=== PATIENT | male | born 1975 | race Caucasian/White ===

== ENCOUNTER 2024-10-04 14:58 | Outpatient (AMB) | payer OTHER, SELFPAY ==
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
[2024-10-04 15:43] VITALS: BP 110/70; PULSE 89; RESP 14; TEMP 36.9; O2SAT 97; BMI 25.0
--- OUTSIDE RECORDS SUMMARY | 2024-10-04 15:59 | XMS_ITS | Continuity of Care Document ---
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 [address], [place], [id number], [place]. tel:[phone] [facility] , [address], [place], [id number], tel:[phone] [facility] Encounter for screening for infections with a predominantly sexual mode of transmission Jorge Chin. [address], [place], [id number], [place]. tel:[phone] Family History Family Member Type Diagnosis Age At Onset No Information Payers Payer name Insurance type Covered democrat ID Authoriza tion(s) No Information Social History Type Description Quantity Date Captured Comments Sex Male Smoking Status No Information Gender Identity Male Chief Complaint And Reason For Visit No Information Reason For Referral Reason For Referral No Information Plan Of Treatment Date Type Action Status Goal Flu (split) (3 y rs or older). Due on due Goal Flu (split) (3 y rs or older). Due on due Future Order: Lab Order GC ORAL - NAAT (GCORALNAAT), Ordered on: Ordered Future Order: Lab Order CHLY Ora l - NAAT (CHLYORALNAAT), Ordered on: Ordered Future Order: Lab Order RPR W/re flex FTA (RPRREFLEX), Appointment on: Ordered Future Order: Lab Order Gonorrhe a NAAT (Amp) (GONRHEA), Appointment on: Ordered Future Order: Lab Order Chlamydi a NAAT (CHLAMP), Appointment on: Ordered History Of Present Illness Encounter Date Complaint History Of Prese nt Illness No Information Functional Status Date Functional Assessmen t No Information Instructions Date Instruction Additional Infor mation No Information Assessments Type Assessment Date No Information Patient Care Teams Name Effective Dates (start - stop) Status Members No Information
--- OUTSIDE RECORDS SUMMARY | 2024-10-04 16:00 | XMS_ITS ---
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 Generated for Printi liss/Luke/eTransmitting on:?10/04/2024 04:00 PM EST
--- OUTSIDE RECORDS SUMMARY | 2024-10-04 16:00 | XMS_ITS | Clinical Summary ---
Author Organization [facility] Address [address] [place] [address] Care Team Providers Care Shop Clerk Name Role Phone DevinsolAnn-Marie DO Primary Care Provider Georgiana vailable Source Comments PLEASE NOTE, if this patient is a minor, it may be UNLAWFUL to discuss sensitive information that is contained in these records (such as FAMILY PLANNING, MENTAL HEALTH or SUBSTANCE ABUSE) with the minor patient's parent or other person without the patient's specific authorization.[facility] Allergies Active Allergy Reactions Criticality Noted Date Comments Latex Hives 05/12/2015 Sildenafil Rash Low 05/15/2021 Sulfa (Sulfonamide Antibiotics) Hives 01/2015 Medications cetirizine (ZYRTEC) 10 mg tablet Take 10 mg by mouth once daily 04/17/20 20 Active tadalafiL (CIALIS) 10 mg tablet 03/15/20 20 Active ibuprofen 800 mg tablet 800 mg 11/16/19 21 Active testosterone cypionate (DEPO-TESTOTERON E CYPIONATE) 100 mg/mL injection Inject into the muscle every 14 (fourteen) days Active HYPODERMIC NEEDLES 23 gauge x 1 ndle DIRECTED INTRAMUSCULAR ONCE A WEEK 30 DAYS 09/10/19 24 Active BD LUER-KONRAD SYRINGE 3 mL 25 x 5/8 syrg DIRECTED INTRAMUSCULAR ONCE A WEEK 30 DAYS 09/10/19 24 Active emtricitabine-te nofovir, TDF, (TRUVADA) 200-300 mg per tabletIndication s:Contact with and suspected exposure to communicable disease Take 1 Tablet by mouth once daily 90 Tablet 1 11/16/19 24 Active Active Problems Problem Noted Date Diagnosed Date Erectile dysfunction 05/15/2021 Overview (05/16/2021): Last Assessment & Plan: Patient suspects that he has low testosterone he [facility] did have labs performed. The patient is unsure of exactly which labs or what the exact values of the labs were. Will obtain records. Patient states that he was told that he had low testosterone and was recommended to start testosterone gel supplementation. Will review the records. Continue Cialis 10 mg p.o. as needed Seasonal allergies 12/04/2020 Overview (05/16/2021): Last Assessment & Plan: Stable Well-controlled Continue Zyrtec 10 mg p.o. daily Contact with and suspected exposure to communica ble disease 09/22/2015 Assessment & Plan (11/16/2023 10:28 AM EDT): Images from the original note were not included. Pre Exposure Prophylaxis (PrEP) Follow-Up Patient presents today wishing to: [x] Continue PrEP [] Re-start PrEP, and has been off how long? 11/16/2023 10:25 AM 11/16/2023 12:00 AM 08/17/2023 12:00 AM PrEP Meds Prescribed emtricitabine/tenofovir (TDF) 1 Tablet Daily oral 1 Tablet Daily oral 1 Tablet Daily oral Medication marked as long-term Adherence: adherent all of the time Side effects: none History: Gender Identity and Sexual Orientation Sexuality Patient's sexual orientation: [place]le[place] Gender Identity Patient's gender identity: Male Patient's sex assigned at : Male Patient's pronouns: he/him/his Organ Inventory Organs the patient currently has: penis, testes, prostate Organs present at or expected at to develop: penis, prostate, testes Condom Use You or partner(s) treated for STD's in last 12 months? No Are you experiencing emotional or sexual abuse? No Current Symptoms Signs/symptoms c/w acute HIV infection? No Persons of child-bearing potential: Any chance you could be ? N/A Recent Labs: HIV No results found., 12/20/2022: Non Reactive 04/22/2023: Non Reactive 08/17/2023: Non Reactive RPR 12/20/2022: 1:1 04/22/2023: 1:2 08/17/2023: 1:2 Oral GC 12/20/2022: Positive 04/22/2023: Negative 08/17/2023: Negative Oral Chlamydia 12/20/2022: Negative 04/22/2023: Negative 08/17/2023: Positive Urinary GC 12/20/2022: Positive 04/22/2023: Negative 08/17/2023: Negative Urinary Chlamydia 12/20/2022: Negative 04/22/2023: Negative 08/17/2023: Negative Anal GC 12/20/2022: Positive 04/22/2023: Negative 08/17/2023: Negative Anal Chlamydia 12/20/2022: Negative 04/22/2023: Negative 08/17/2023: Negative Patient Education: Sexual risks were re-assessed & discussed STI Counseling Provided: yes Active FYI flags for this patient: SA109 - VM, SA109 PrEP N FÁTIMA (Prevention Assistance Program Interventions) Status: patient is not eligible for FÁTIMA or is not interested Assessment: [] Labs were ordered before this visit and were reviewed [x] Pt is free of any signs of symptoms of acute HIV infection [x] Patient is a good candidate to continue PrEP, and is agreeable to proceed [] POCT test was performed and the results were negative For Injectable PrEP [] VL will be ordered to confirm negative POCT results [] Back office order was placed for injection [] Patient scheduled for 2 month f/u with pharmacist (if applicable) Plan: [x] Labs will need to be ordered A 3 month prescription will be provided: [] N/A on injectable PrEP [x] Truvada (300 mg tenofovir + 200 mg emtricitabine) [] Descovy (25 mg tenofovir + 200 mg emtricitabine) [] Medication deferred until labs are done and reviewed [] Truvada [] Descovy Assessment & Plan (08/17/2023 2:33 PM EST): Images from the original note were not included. Pre Exposure Prophylaxis (PrEP) Follow-Up Patient presents today wishing to: [x] Continue PrEP [] Re-start PrEP, and has been off how long? 08/17/2023 2:32 PM 08/17/2023 12:00 AM 02/16/2023 12:00 AM PrEP Meds Prescribed emtricitabine/tenofovir (TDF) 1 Tablet Daily oral 1 Tablet Daily oral 1 Tablet Daily oral Medication marked as long-term Adherence: adherent all of the time Side effects: none History: Gender Identity and Sexual Orientation Sexuality Patient's sexual orientation: Lafleur Gender Identity Patient's gender identity: Male Patient's sex assigned at : Male Patient's pronouns: he/him/his Organ Inventory Organs the patient currently has: penis, testes, prostate Organs present at or expected at to develop: penis, prostate, testes Condom Use no You or partner(s) treated for STD's in last 12 months? no Are you experiencing emotional or sexual abuse? no Current Symptoms Signs/symptoms c/w acute HIV infection? No Persons of child-bearing potential: Any chance you could be ? N/A Recent Labs: HIV No results found., 11/10/2022: Non Reactive 12/20/2022: Non Reactive 04/22/2023: Non Reactive RPR 11/10/2022: 1:2 12/20/2022: 1:1 04/22/2023: 1:2 Oral GC 11/10/2022: Negative 12/20/2022: Positive 04/22/2023: Negative Oral Chlamydia 11/10/2022: Negative 12/20/2022: Negative 04/22/2023: Negative Urinary GC 11/10/2022: Negative 12/20/2022: Positive 04/22/2023: Negative Urinary Chlamydia 11/10/2022: Negative 12/20/2022: Negative 04/22/2023: Negative Anal GC 11/10/2022: Negative 12/20/2022: Positive 04/22/2023: Negative Anal Chlamydia 11/10/2022: Negative 12/20/2022: Negative 04/22/2023: Negative Patient Education: Sexual risks were re-assessed & discussed STI Counseling Provided: yes Active FYI flags for this patient: SA109 - VM, SA109 PrEP N FÁTIMA (Prevention Assistance Program Interventions) Status: patient is enrolled in FÁTIMA Assessment: [] Labs were ordered before this visit and were reviewed [x] Pt is free of any signs of symptoms of acute HIV infection [x] Patient is a good candidate to continue PrEP, and is agreeable to proceed [] POCT test was performed and the results were negative For Injectable PrEP [] VL will be ordered to confirm negative POCT results [] Back office order was placed for injection [] Patient scheduled for 2 month f/u with pharmacist (if applicable) Plan: [x] Labs will need to be ordered A 3 month prescription will be provided: [] N/A on injectable PrEP [x] Truvada (300 mg tenofovir + 200 mg emtricitabine) [] Descovy (25 mg tenofovir + 200 mg emtricitabine) [] Medication deferred until labs are done and reviewed [] Truvada [] Descovy Assessment & Plan (04/22/2023 2:24 PM EDT): Images from the original note were not included. 04/22/2023 Pre Exposure Prophylaxis (PrEP) Follow-Up Patient presents today wishing to: [x] Continue PrEP [] Re-start PrEP, and has been off how long? 04/22/2023 2:22 PM 02/16/2023 12:00 AM PrEP Meds Prescribed emtricitabine/tenofovir (TDF) 1 Tablet Daily oral 1 Tablet Daily oral Medication marked as long-term Adherence: adherent all of the time Side effects: none History: Gender Identity and Sexual Orientation Sexuality Patient's sexual orientation: [place]leur Gender Identity Patient's gender identity: Male Patient's sex assigned at : Male Patient's pronouns: he/him/his Organ Inventory Organs the patient currently has: penis, testes, prostate Organs present at or expected at to develop: penis, prostate, testes Condom Use You or partner(s) treated for STD's in last 12 months? Yes in December Are you experiencing emotional or sexual abuse? Not assessed Current Symptoms Signs/symptoms c/w acute HIV infection? No Recent Labs: HIV No results found., 07/26/2022: Non Reactive 11/10/2022: Non Reactive 12/20/2022: Non Reactive RPR 07/26/2022: 1:2 11/10/2022: 1:2 12/20/2022: 1:1 Oral GC 07/26/2022: Negative 11/10/2022: Negative 12/20/2022: Positive Oral Chlamydia 07/26/2022: Negative 11/10/2022: Negative 12/20/2022: Negative Urinary GC 07/26/2022: Negative 11/10/2022: Negative 12/20/2022: Positive Urinary Chlamydia 07/26/2022: Positive 11/10/2022: Negative 12/20/2022: Negative Anal GC 07/26/2022: Negative 11/10/2022: Negative 12/20/2022: Positive Anal Chlamydia 07/26/2022: Negative 11/10/2022: Negative 12/20/2022: Negative Patient Education: Sexual risks were re-assessed & discussed STI Counseling Provided: yes Active FYI flags for this patient: SA109 - VM, SA109 PrEP N FÁTIMA (Prevention Assistance Program Interventions) Status: patient is not eligible for FÁTIMA or is not interested Assessment: [] Labs were ordered before this visit and were reviewed [x] Pt is free of any signs of symptoms of acute HIV infection [x] Patient is a good candidate to continue PrEP, and is agreeable to proceed Plan: [] Labs will need to be ordered A 3 month prescription will be provided: [] Truvada (300 mg tenofovir + 200 mg emtricitabine) [] Descovy (25 mg tenofovir + 200 mg emtricitabine) [] Medication deferred until labs are done and reviewed [] Truvada [] Descovy Routine sti testing per patient request; no known exposures to persons with STI. CMP was checked in December; bun and creat wnl. 6 months of meds was sent in February Assessment & Plan (02/16/2023 12:43 PM EDT): 02/16/23 Pre Exposure Prophylaxis (PrEP) Follow-Up Patient presents today wishing to: [x] Continue PrEP [] Re-start PrEP, and has been off how long? 02/16/2023 12:29 PM 04/23/2022 12:00 AM PrEP Meds Prescribed emtricitabine/tenofovir (TDF) 1 Tablet Daily oral 1 Tablet Daily oral Medication marked as long-term Adherence: adherent all of the time Side effects: none History: Gender Identity and Sexual Orientation Sexuality Patient's sexual orientation: [place]leur Gender Identity Patient's gender identity: Male Patient's sex assigned at : Male Patient's pronouns: he/him/his Organ Inventory Organs the patient currently has: penis, testes, prostate Organs present at or expected at to develop: penis, prostate, testes Condom Use Usually with penetration. You or partner(s) treated for STD's in last 12 months? Yes- at last visit, no known exposures, meaning that only done a couple of oral Are you experiencing emotional or sexual abuse? No. Current Symptoms Signs/symptoms c/w acute HIV infection? No Persons of child-bearing potential: Any chance you could be ? Recent Labs: HIV No results found., 07/26/2022: Non Reactive 11/10/2022: Non Reactive 12/20/2022: Non Reactive RPR 01/06/2022: Reactive 04/18/2022: Reactive 11/10/2022: Reactive Oral GC 07/26/2022: Negative 11/10/2022: Negative 12/20/2022: Positive Oral Chlamydia 07/26/2022: Negative 11/10/2022: Negative 12/20/2022: Negative Urinary GC 07/26/2022: Negative 11/10/2022: Negative 12/20/2022: Positive Urinary Chlamydia 07/26/2022: Positive 11/10/2022: Negative 12/20/2022: Negative Anal GC 07/26/2022: Negative 11/10/2022: Negative 12/20/2022: Positive Anal Chlamydia 07/26/2022: Negative 11/10/2022: Negative 12/20/2022: Negative Patient Education: Sexual risks were re-assessed & discussed STI Counseling Provided: yes Active FYI flags for this patient: SA109 - VM, SA109 PrEP N Assessment: [x] Labs were ordered before this visit and were reviewed [] Pt is free of any signs of symptoms of acute HIV infection [x] Patient is a good candidate to continue PrEP, and is agreeable to proceed Plan: [x] Labs will need to be ordered A 3 month prescription will be provided: [x] Truvada (300 mg tenofovir + 200 mg emtricitabine) [] Descovy (25 mg tenofovir + 200 mg emtricitabine) [] Medication deferred until labs are done and reviewed [] Truvada [] Descovy Assessment & Plan (12/20/2022 10:52 AM EDT): Images from the original note were not included. Pre Exposure Prophylaxis (PrEP) Follow-Up Patient presents today wishing to: [x] Continue PrEP [] Re-start PrEP, and has been off how long? 12/20/2022 10:51 AM 04/23/2022 12:00 AM PrEP Meds Prescribed emtricitabine/tenofovir (TDF) 1 Tablet Daily oral 1 Tablet Daily oral Medication marked as long-term Adherence: adherent all of the time Side effects: none History: Gender Identity and Sexual Orientation Sexuality Patient's sexual orientation: [place]le[place] Gender Identity Patient's gender identity: Male Patient's sex assigned at : Male Patient's pronouns: he/him/his Organ Inventory Organs the patient currently has: penis, testes, prostate Organs present at or expected at to develop: penis, prostate, testes Condom Use You or partner(s) treated for STD's in last 12 months? None Are you experiencing emotional or sexual abuse? No Current Symptoms Signs/symptoms c/w acute HIV infection? No Recent Labs: HIV No results found., 04/18/2022: Non Reactive 07/26/2022: Non Reactive 11/10/2022: Non Reactive RPR 01/06/2022: Reactive 04/18/2022: Reactive 11/10/2022: Reactive Oral GC 04/18/2022: Negative 07/26/2022: Negative 11/10/2022: Negative Oral Chlamydia 04/18/2022: Negative 07/26/2022: Negative 11/10/2022: Negative Urinary GC 04/18/2022: Negative 07/26/2022: Negative 11/10/2022: Negative Urinary Chlamydia 04/18/2022: Negative 07/26/2022: Positive 11/10/2022: Negative Anal GC 04/18/2022: Negative 07/26/2022: Negative 11/10/2022: Negative Anal Chlamydia 04/18/2022: Negative 07/26/2022: Negative 11/10/2022: Negative Patient Education: Sexual risks were re-assessed & discussed STI Counseling Provided: yes Active FYI flags for this patient: SA109 - VM, SA109 PrEP N FÁTIMA (Prevention Assistance Program Interventions) Status: patient is not eligible for FÁTIMA or is not interested Assessment: [] Labs were ordered before this visit and were reviewed [x] Pt is free of any signs of symptoms of acute HIV infection [x] Patient is a good candidate to continue PrEP, and is agreeable to proceed Plan: [x] Labs will need to be ordered A 3 month prescription will be provided: [x] Truvada (300 mg tenofovir + 200 mg emtricitabine) [] Descovy (25 mg tenofovir + 200 mg emtricitabine) [] Medication deferred until labs are done and reviewed [] Truvada [] Descovy Assessment & Plan (11/13/2022 9:16 AM EST): 11/12/22 Pre Exposure Prophylaxis (PrEP) Follow-Up Patient presents today wishing to: [x] Continue PrEP [] Re-start PrEP, and has been off how long? PrEP Meds Prescribed 04/23/2022 01/09/2022 Truvada (oral) 1 Tab Daily 1 Tab Daily Adherence: adherent all of the time Side effects: none Notes that recent kidney stones - they have passed. Notes has 10 bottles built up - not sure how happened, so will not refill today because he asks not to be sent. History: Gender Identity and Sexual Orientation Sexuality Patient's sexual orientation: [place]leur Gender Identity Patient's gender identity: Male Patient's sex assigned at : Male Patient's pronouns: he/him/his Organ Inventory Organs the patient currently has: penis, testes, prostate Organs present at or expected at to develop: penis, prostate, testes Condom Use Most of the time; Oral without You or partner(s) treated for STD's in last 12 months? No known exposures. Are you experiencing emotional or sexual abuse? No Current Symptoms Signs/symptoms c/w acute HIV infection? No Persons of child-bearing potential: Any chance you could be ? No Recent Labs: HIV No results found., 04/18/2022: Non Reactive 07/26/2022: Non Reactive 11/10/2022: Non Reactive RPR 01/06/2022: Reactive 04/18/2022: Reactive 11/10/2022: Reactive Oral GC 04/18/2022: Negative 07/26/2022: Negative 11/10/2022: Negative Oral Chlamydia 04/18/2022: Negative 07/26/2022: Negative 11/10/2022: Negative Urinary GC 04/18/2022: Negative 07/26/2022: Negative 11/10/2022: Negative Urinary Chlamydia 04/18/2022: Negative 07/26/2022: Positive 11/10/2022: Negative Anal GC 04/18/2022: Negative 07/26/2022: Negative 11/10/2022: Negative Anal Chlamydia 04/18/2022: Negative 07/26/2022: Negative 11/10/2022: Negative Patient Education: Sexual risks were re-assessed & discussed STI Counseling Provided: yes Active FYI flags for this patient: SA109 - VM, SA109 PrEP N FÁTIMA (Prevention Assistance Program Interventions) Status: patient is not eligible for FÁTIMA or is not interested Assessment: [x] Labs were ordered before this visit and were reviewed [x] Pt is free of any signs of symptoms of acute HIV infection [] Patient is a good candidate to continue PrEP, and is agreeable to proceed Plan: [] Labs will need to be ordered A 3 month prescription will be provided: [x] Truvada (300 mg tenofovir + 200 mg emtricitabine) [] Descovy (25 mg tenofovir + 200 mg emtricitabine) [] Medication deferred until labs are done and reviewed [] Truvada [] Descovy Placed future lab orders today to do before next visit. I did NOT send Truvada due to a supply he has. Assessment & Plan (07/23/2022 11:03 AM EST): [facility] has plenty of refills of generic truvada. Will let me know when he needs more. Assessment & Plan (04/18/2022 10:06 AM EDT): Pre Exposure Prophylaxis (PrEP) Follow-Up Patient presents today wishing to: [x] Continue PrEP [] Re-start PrEP, and has been off how long? PrEP Meds Prescribed 01/09/2022 11/12/2021 Truvada (oral) 1 Tab Daily 1 Tab Daily Adherence: adherent all of the time Side effects: none History: Gender Identity and Sexual Orientation Sexuality Patient's sexual orientation: [place] Gender Identity Patient's gender identity: Male Patient's sex assigned at : Male Patient's pronouns: he/him/his Organ Inventory Organs the patient currently has: penis, testes, prostate Organs present at or expected at to develop: penis, prostate, testes Current Symptoms Signs/symptoms c/w acute HIV infection? No Persons of child-bearing potential: Any chance you could be ? Recent Labs: HIV No results found., 08/19/2021: Non Reactive 11/13/2021: Non Reactive 01/06/2022: Non Reactive RPR 08/19/2021: Reactive 11/13/2021: Reactive 01/06/2022: Reactive Oral GC 08/19/2021: Negative 11/13/2021: Negative 01/06/2022: Negative Oral Chlamydia 08/19/2021: Negative 11/13/2021: Negative 01/06/2022: Negative Urinary GC 05/02/2021: Negative 08/19/2021: Negative 01/06/2022: Negative Urinary Chlamydia 05/02/2021: Negative 08/19/2021: Negative 01/06/2022: Negative Anal GC 05/02/2021: Negative 08/19/2021: Negative 01/06/2022: Negative Anal Chlamydia 05/02/2021: Negative 08/19/2021: Negative 01/06/2022: Negative Patient Education: Sexual risks were re-assessed & discussed STI Counseling Provided: no Active FYI flags for this patient: SA109 - VM FÁTIMA (Prevention Assistance Program Interventions) Status: patient may be interested in FÁTIMA (income less than $62,500 a year); will refer to Transformation Architect Send information to FÁTIMA coordinator Assessment: [] Labs were ordered before this visit and were reviewed [x] Pt is free of any signs of symptoms of acute HIV infection [x] Patient is a good candidate to continue PrEP, and is agreeable to proceed Plan: [x] Labs will need to be ordered A 3 month prescription will be provided: [] Truvada (300 mg tenofovir + 200 mg emtricitabine) [] Descovy (25 mg tenofovir + 200 mg emtricitabine) [] Medication deferred until labs are done and reviewed [x] Truvada [] Descovy Assessment & Plan (01/09/2022 9:42 AM EDT): Pre Exposure Prophylaxis (PrEP) Follow-Up Patient presents today wishing to: [x] Continue PrEP [] Re-start PrEP, and has been off how long? PrEP Meds Prescribed 01/09/2022 11/12/2021 Truvada (oral) 1 Tab Daily 1 Tab Daily Adherence: adherent all of the time Side effects: none History: Gender Identity and Sexual Orientation Sexuality Patient's sexual orientation: [place] Gender Identity Patient's gender identity: Male Patient's sex assigned at : Male Patient's pronouns: he/him/his Organ Inventory Organs the patient currently has: penis, testes, prostate Organs present at or expected at to develop: penis, prostate, testes Condom Use no condomless encounters since testing You or partner(s) treated for STD's in last 12 months? no Are you experiencing emotional or sexual abuse? no Current Symptoms Signs/symptoms c/w acute HIV infection? No Recent Labs: HIV No results found., 08/19/2021: Non Reactive 11/13/2021: Non Reactive 01/06/2022: Non Reactive RPR 08/19/2021: Reactive 11/13/2021: Reactive 01/06/2022: Reactive Oral GC 08/19/2021: Negative 11/13/2021: Negative 01/06/2022: Negative Oral Chlamydia 08/19/2021: Negative 11/13/2021: Negative 01/06/2022: Negative Urinary GC 05/02/2021: Negative 08/19/2021: Negative 01/06/2022: Negative Urinary Chlamydia 05/02/2021: Negative 08/19/2021: Negative 01/06/2022: Negative Anal GC 05/02/2021: Negative 08/19/2021: Negative 01/06/2022: Negative Anal Chlamydia 05/02/2021: Negative 08/19/2021: Negative 01/06/2022: Negative Patient Education: Sexual risks were re-assessed & discussed STI Counseling Provided: yes Active FYI flags for this patient: SA109 - VM Assessment: [x] Labs were ordered before this visit and were reviewed [x] Pt is free of any signs of symptoms of acute HIV infection [x] Patient is a good candidate to continue PrEP, and is agreeable to proceed Plan: [] Labs will need to be ordered A 3 month prescription will be provided: [x] Truvada (300 mg tenofovir + 200 mg emtricitabine) [] Descovy (25 mg tenofovir + 200 mg emtricitabine) [] Medication deferred until labs are done and reviewed [] Truvada [] Descovy Assessment & Plan (11/12/2021 5:13 PM EST): Pre Exposure Prophylaxis (PrEP) Follow-Up Patient presents today wishing to: [x] Continue PrEP [] Re-start PrEP, and has been off how long? PrEP Meds Prescribed 11/12/2021 09/26/2021 Truvada (oral) 1 Tab Daily 1 Tab Daily Adherence: adherent all of the time Side effects: none History: Gender Identity and Sexual Orientation Sexuality Patient's sexual orientation: Lesbian or Lafleur Gender Identity Patient's gender identity: Male Patient's sex assigned at : Male Patient's pronouns: he/him/his Organ Inventory Organs the patient currently has: penis, testes, prostate Organs present at or expected at to develop: penis, prostate, testes Condom Use no condomless encounters You or partner(s) treated for STD's in last 12 months? no Are you experiencing emotional or sexual abuse? no Current Symptoms Signs/symptoms c/w acute HIV infection? No Recent Labs: HIV No results found., 12/08/2020: Non Reactive 05/02/2021: Non Reactive 08/19/2021: Non Reactive RPR 05/02/2021: 1:2; Reactive 08/19/2021: 1:2; Reactive Oral GC 12/08/2020: Negative 05/02/2021: Positive 08/19/2021: Negative Oral Chlamydia 12/08/2020: Negative 05/02/2021: Negative 08/19/2021: Negative Urinary GC 12/08/2020: Negative 05/02/2021: Negative 08/19/2021: Negative Urinary Chlamydia 12/08/2020: Negative 05/02/2021: Negative 08/19/2021: Negative Anal GC 12/08/2020: Negative 05/02/2021: Negative 08/19/2021: Negative Anal Chlamydia 12/08/2020: Negative 05/02/2021: Negative 08/19/2021: Negative Patient Education: Sexual risks were re-assessed & discussed STI Counseling Provided: yes Assessment: [] Labs were ordered before this visit and were reviewed [x] Pt is free of any signs of symptoms of acute HIV infection [x] Patient is a good candidate to continue PrEP, and is agreeable to proceed Plan: [x] Labs will need to be ordered A 3 month prescription will be provided: [x] Truvada (300 mg tenofovir + 200 mg emtricitabine) [] Descovy (25 mg tenofovir + 200 mg emtricitabine) [] Medication deferred until labs are done and reviewed [] Truvada [] Descovy Assessment & Plan (08/19/2021 3:24 PM EST): Pre Exposure Prophylaxis (PrEP) Follow-Up Patient presents today wishing to: [x] Continue PrEP [] Re-start PrEP, and has been off how long? PrEP Meds Prescribed 05/16/2021 03/08/2021 Truvada (oral) 1 Tab Daily 1 Tab Daily Adherence: adherent all of the time Side effects: none History: Gender Identity and Sexual Orientation Sexuality Patient's sexual orientation: Lesbian or Lafleur Gender Identity Patient's gender identity: Male Patient's sex assigned at : Male Patient's pronouns: he/him/his Organ Inventory Organs the patient currently has: penis, testes, prostate Organs present at or expected at to develop: penis, prostate, testes Condom Use yes You or partner(s) treated for STD's in last 12 months? GC in April Are you experiencing emotional or sexual abuse? no Current Symptoms Signs/symptoms c/w acute HIV infection? No Recent Labs: HIV 09/15/2019: NONREACTIVE, 09/18/2020: Non Reactive 12/08/2020: Non Reactive 05/02/2021: Non Reactive RPR 12/08/2020: 1:4; Reactive 05/02/2021: 1:2; Reactive Oral GC 09/18/2020: Negative 12/08/2020: Negative 05/02/2021: Positive Oral Chlamydia 09/18/2020: Negative 12/08/2020: Negative 05/02/2021: Negative Urinary GC 09/18/2020: Negative 12/08/2020: Negative 05/02/2021: Negative Urinary Chlamydia 09/18/2020: Negative 12/08/2020: Negative 05/02/2021: Negative Anal GC 09/18/2020: Negative 12/08/2020: Negative 05/02/2021: Negative Anal Chlamydia 09/18/2020: Negative 12/08/2020: Negative 05/02/2021: Negative Patient Education: Sexual risks were re-assessed & discussed STI Counseling Provided: yes Active FYI flags for this patient: SA109 - VM Assessment: [] Labs were ordered before this visit and were reviewed [x] Pt is free of any signs of symptoms of acute HIV infection [x] Patient is a good candidate to continue PrEP, and is agreeable to proceed Plan: [x] Labs will need to be ordered A 3 month prescription will be provided: [x] Truvada (300 mg tenofovir + 200 mg emtricitabine) [] Descovy (25 mg tenofovir + 200 mg emtricitabine) [] Medication deferred until labs are done and reviewed [] Truvada [] Descovy Assessment & Plan (05/16/2021 8:55 AM EDT): Pre Exposure Prophylaxis (PrEP) Follow-Up Patient presents today wishing to: [x] Continue PrEP [] Re-start PrEP, and has been off how long? PrEP Meds Prescribed 03/08/2021 11/26/2020 Truvada (oral) 1 Tab Daily 1 Tab Daily Adherence: adherent all of the time Side effects: none History: Gender Identity and Sexual Orientation Sexuality Patient's sexual orientation: Lesbian or Lafleur Gender Identity Patient's gender identity: Male Patient's sex assigned at : Male Patient's pronouns: he/him/his Organ Inventory Organs the patient currently has: penis, testes, prostate Organs present at or expected at to develop: penis, prostate, testes Sexual Partners yes Condom Use yes You or partner(s) treated for STD's in last 12 months? no Body parts used in sex yes Are you experiencing emotional or sexual abuse? no Current Symptoms Signs/symptoms c/w acute HIV infection? No Persons of child-bearing potential: Any chance you could be ? Recent Labs: HIV 05/19/2019: NONREACTIVE 09/15/2019: NONREACTIVE, 09/18/2020: Non Reactive 12/08/2020: Non Reactive 05/02/2021: Non Reactive RPR 12/08/2020: 1:4; Reactive 05/02/2021: 1:2; Reactive Oral GC 09/18/2020: Negative 12/08/2020: Negative 05/02/2021: Positive Oral Chlamydia 09/18/2020: Negative 12/08/2020: Negative 05/02/2021: Negative Urinary GC 09/18/2020: Negative 12/08/2020: Negative 05/02/2021: Negative Urinary Chlamydia 09/18/2020: Negative 12/08/2020: Negative 05/02/2021: Negative Anal GC 09/18/2020: Negative 12/08/2020: Negative 05/02/2021: Negative Anal Chlamydia 09/18/2020: Negative 12/08/2020: Negative 05/02/2021: Negative Patient Education: Sexual risks were re-assessed & discussed STI Counseling Provided: yes Assessment: [x] Labs were ordered before this visit and were reviewed [x] Pt is free of any signs of symptoms of acute HIV infection [x] Patient is a good candidate to continue PrEP, and is agreeable to proceed Plan: [] Labs will need to be ordered A 3 month prescription will be provided: [x] Truvada (300 mg tenofovir + 200 mg emtricitabine) [] Descovy (25 mg tenofovir + 200 mg emtricitabine) [] Medication deferred until labs are done and reviewed [] Truvada [] Descovy Assessment & Plan (11/26/2020 2:43 PM EDT): Pre Exposure Prophylaxis (PrEP) Folllow-Up Patient presents today wishing to: [x] Continue PrEP [] Re-start PrEP, and has been off how long? Patient is/was prescribed: [x] Truvada [] Descovy Adherence: adherent most of the time Side effects: none History: Gender Identity and Sexual Orientation Sexuality Patient's sexual orientation: Lesbian or Lafleur Gender Identity Patient's gender identity: Male Patient's sex assigned at : Male Patient's pronouns: he/him/his Organ Inventory Organs the patient currently has: penis, testes, prostate Organs present at or expected at to develop: penis, prostate, testes Sexual Partners MSM Condom Use yes You or partner(s) treated for STD's in last 12 months? no Body parts used in sex Have sex for drugs or money? no Are you experiencing emotional or sexual abuse? no Current Symptoms [x] None [] Burning [] Discharge [] Sores [] Rash [] Fever [] Signs/symptoms c/w acute HIV infection? Recent Labs: HIV 01/03/2019: NONREACTIVE 05/19/2019: NONREACTIVE 09/15/2019: NONREACTIVE, 11/29/2019: Non Reactive 04/27/2020: Non Reactive 09/18/2020: Non Reactive RPR 04/27/2020: 1:2; Reactive 09/18/2020: 1:16; Reactive Oral GC 09/15/2019: Negative 04/27/2020: Negative 09/18/2020: Negative Oral Chlamydia 09/15/2019: Negative 04/27/2020: Negative 09/18/2020: Negative Urinary GC 09/15/2019: Negative 04/27/2020: Negative 09/18/2020: Negative Urinary Chlamydia 09/15/2019: Negative 04/27/2020: Negative 09/18/2020: Negative Anal GC 09/15/2019: Negative 04/27/2020: Negative 09/18/2020: Negative Anal Chlamydia 09/15/2019: Negative 04/27/2020: Negative 09/18/2020: Negative Patient Education: [x] Sexual risks were re-assessed & discussed STI Counseling Provided: yes Assessment: [x] Labs were ordered before this visit and were reviewed [x] Pt is free of any signs of symptoms of acute HIV infection [x] Patient is a good candidate to continue PrEP, and is agreeable to proceed Plan: [x] Labs will need to be ordered A 3 month prescription will be provided: [x] Truvada (300 mg tenofovir + 200 mg emtricitabine) [] Descovy (25 mg tenofovir + 200 mg emtricitabine) [] Medication deferred until labs are done and reviewed [x] Truvada [] Descovy Assessment & Plan (08/13/2020 4:23 PM EST): Pre Exposure Prophylaxis (PrEP) Folllow-Up Patient presents today wishing to: [x] Continue PrEP [] Re-start PrEP, and has been off how long? Patient is/was prescribed: [x] Truvada [] Descovy Adherence: adherent most of the time Side effects: none History: Gender Identity and Sexual Orientation Sexuality Patient's sexual orientation: Lesbian or Lafleur Gender Identity Patient's gender identity: Male Patient's sex assigned at : Male Patient's pronouns: he/him/his Organ Inventory Organs the patient currently has: penis, testes, prostate Organs present at or expected at to develop: penis, prostate, testes Sexual Partners MSM Condom Use yes You or partner(s) treated for STD's in last 12 months? no Body parts used in sex Have sex for drugs or money? no Are you experiencing emotional or sexual abuse? no Current Symptoms [x] None [] Burning [] Discharge [] Sores [] Rash [] Fever [] Signs/symptoms c/w acute HIV infection? Recent Labs: HIV 01/03/2019: NONREACTIVE 05/19/2019: NONREACTIVE 09/15/2019: NONREACTIVE, 11/29/2019: Non Reactive 04/27/2020: Non Reactive RPR 09/15/2019: 1:4; Reactive 04/27/2020: 1:2; Reactive Oral GC 01/03/2019: Negative 09/15/2019: Negative 04/27/2020: Negative Oral Chlamydia 01/03/2019: Negative 09/15/2019: Negative 04/27/2020: Negative Urinary GC 01/03/2019: Negative 09/15/2019: Negative 04/27/2020: Negative Urinary Chlamydia 01/03/2019: Negative 09/15/2019: Negative 04/27/2020: Negative Anal GC 01/03/2019: Negative 09/15/2019: Negative 04/27/2020: Negative Anal Chlamydia 01/03/2019: Negative 09/15/2019: Negative 04/27/2020: Negative Patient Education: [x] Sexual risks were re-assessed & discussed STI Counseling Provided: yes Assessment: [x] Labs were ordered before this visit and were reviewed [x] Pt is free of any signs of symptoms of acute HIV infection [x] Patient is a good candidate to continue PrEP, and is agreeable to proceed Plan: [x] Labs will need to be ordered A 3 month prescription will be provided: [x] Truvada (300 mg tenofovir + 200 mg emtricitabine) [] Descovy (25 mg tenofovir + 200 mg emtricitabine) [] Medication deferred until labs are done and reviewed [x] Truvada [] Descovy Resolved Problems Problem Noted Date Diagnosed Date Resolved Date History of syphilis 09/15/2019 11/27/19 Screening examination for se xually transmitted disease 12/23/2018 11/26/2020 Immunity to hepatitis B viru s demonstrated by serologic test 12/23/2018 11/26/2020 Immunizations Name Administration Dates Next Due Moderna COVID-19 Vaccine, re d cap blue label, 12+ Primary Series 01/17/2021,12/17/2020 TDAP 05/15/2021 Family History Medical History Relation Name Comments Alcohol/Drug Abuse Father Nomi COPD Father Nomi Cancer Father Nomi High Cholesterol Father Nomi Hypertension Father Nomi Mental illness Father Nomi Stroke Father Nomi Allergies Mother Svitlana Arthritis Mother Svitlana COPD Mother Svitlana Cancer Mother Svitlana Diabetes Mother Svitlana Heart Problems Mother Svitlana Stroke Mother Svitlana Relation Name Status Comments Father Nomi Mother Svitlana Social History Tobacco Use Types Packs/Day Years Used Date Smoking Tobacco: Never Passive Smoke Exposure: Never Smokeless Tobacco: Never Tobacco Cessation:Counseling Given: No Alcohol Use Standard Drinks/Week Comments Yes 8 (1 standard drink = 0.6 oz pur e alcohol) Social Connections Answer Date Recorded Connectedness 0 05/27/2024 Financial Resource Strain Answer Date R ecorded Financial Resource Strain 0 2018 Stress Answer Date Recorded Stress 0 05/02/2019 Physical Activity Answer Date Recorded Physical Activity 0 05/02/2019 Food Insecurity Answer Date Recorded Food 0 06/02/2024 Transportation Needs Answer Date Record ed Transportation 0 05/02/2019 Housing Stability Answer Date Recorded Housing 0 05/02/2019 Safety and Environment Answer Date Aman rded Safety 0 05/02/2019 Utilities Answer Date Recorded Utilities 0 05/02/2019 Employment Answer Date Recorded Stress 0 05/27/2024 Sex and Gender Information Value Date Recorded Sex Assigned at Male 10/05/2018 10:37 AM PST Legal Sex Male 6:45 PM PST Gender Identity Male 10/05/2018 10:37 AM PST Sexual Orientation Lafleur 11/13/2021 7: 51 AM PST Last Filed Vital Signs Vital Sign Reading Time Taken Comments Blood Pressure 125/91 11/16/2023 9:56 AM EDT Pulse 77 11/16/2023 9:56 AM EDT Temperature 36.7 ??C (98 ??F) 11/16/2023 9:56 AM EDT Respiratory Rate 16 11/16/2023 9:56 AM EDT Oxygen Saturation 98% 11/16/2023 9:56 AM EDT Inhaled Oxygen Concentration - - Weight 80.3 kg (177 lb) 11/16/2023 9:56 AM EDT Height 180.3 cm (5' 11 ) 11/16/2023 9:56 AM EDT Body Mass Index 24.69 11/16/2023 9:56 AM EDT Plan of Treatment Health Maintenance Due Date Last Done Comments Lipid Screening 1975 Imm-Hepatitis A (1 of 2 - Ri sk 2-dose series) 1993 CT Colonography 2019 Colonoscopy 2019 FIT/gFOBT 2019 Flexible Sigmoidoscopy 2019 Dmt-PXEIQ-14 ( season) 2024 07/19/2021, 01/17/2021, 12/17/2020 Imm-Influenza (#1) 2024 Imm-Zoster, Recombinant (1 of 2) 2024 Alcohol and Drug Screen 09/07/2024 11/16/19 24, 08/17/2023, 02/16/2023, Additional history exists Depression Annual Screen 09/07/2024 11/16/2023 Colorectal Cancer Screening 10/16/2024 Fecal DNA 10/16/2024 10/16/2021, 10/16/2021 Diabetes Screening 11/15/2024 11/16/2023, 1 10/18/2022, 12/20/2022, Additional history exists HIV Screening 11/15/2024 11/16/2023, 08/07, 04/22/2023, Additional history exists Hypertension Screening (#1) 11/15/2024 Syphilis Screening 11/15/2024 11/16/2023, 0 11/16/2023, 11/16/2023, Additional history exists Tobacco Screening 11/15/2024 11/16/2023 Imm-DTaP/Tdap/Td (2 - Td or Tdap) 05/15/2031 021 Hepatitis B Screening Completed 05/12/2015 Hepatitis C Screening Completed 08/17/2023 , 11/10/2022, 07/26/2022, Additional history exists Imm-Hepatitis B Discontinued Procedures Procedure Name Priority Date/Time Associated Diagnosis Comments HIV 1/0/2 AG/AB W/CASCADE RFLX SUPPLEMENTAL TESTING Routine 11/16/2023 10:28 AM EDT Contact with and suspected exposure to communicable disease RFLX - RPR TITER Routine 11/16/2023 10:2 8 AM EDT Contact with and suspected exposure to communicable disease COMPREHENSIVE METABOLIC PANEL Routine 11/16/2023 10:28 AM EDT Contact with and suspected exposure to communicable disease HEPATITIS C ANTIBODY WITH REFLEX TO HCV, RNA, QUANTITATIVE, REAL-TIME PCR (REFL) Routine 08/17/2023 2:41 PM EST Contact with and suspected exposure to communicable disease from Last 3 Months or Most Recently Relevant to Health Maintenance Results * HIV 1/0/2 AG/AB W/CASCADE RFLX SUPPLEMENTAL TESTING (11/16/2023 10:28 AM EDT) [facility] HIV SCREEN 4TH GENERATION WRFX Non Reactive Non [facility] Comment: HIV Negative HIV-1/HIV-2 antibodies and HIV-1 p24 antigen were NOT detected. There is no laboratory evidence of HIV infection. Blood Blood / Unknown 11/16/2023 1 0:28 AM EDT 11/16/2023 us Jb Wolfe APRN,CAGE MANAGER LAB - BLOOD DR SILVERIO Final Result [facility] [address] [place] [address] * (ABNORMAL) RFLX - RPR TITER (11/16/2023 10:28 AM EDT) Pathologist [facility] RPR, QUANT 1:1(H) NonRea<1:1 titer [facility] 11/16/2023 10:2 8 AM EDT 11/16/2023 Jb Wolfe INTEGRATION DEVELOPER,CAGE MANAGER LAB - BLOOD DR SILVERIO Final Result [facility] [address] [place] [address] * COMPREHENSIVE METABOLIC PANEL (11/16/2023 10:28 AM EDT) GLUCOSE, SERUM 87 70 - 99 mg/dL [facility] BUN 17 6 - 24 mg/dL [facility] CREATININE, SERUM 1.22 0.76 - 1.27 mg/dL [facility] eGFR 73 >59 mL/min/1.7 3 [facility] BUN/CREATININE RATIO 14 9 - 20 [facility] SODIUM, SERUM 141 134 - 144 mmol/L [facility] POTASSIUM, SERUM 4.7 3.5 - 5.2 mmol/L [facility] CHLORIDE, SERUM 103 96 - 106 mmol/L [facility] CARBON DIOXIDE, TOTAL 26 20 - 29 mmol/L [facility] CALCIUM, SERUM 10.0 8.7 - 10.2 mg/dL [facility] PROTEIN, TOTAL, SERUM 7.0 6.0 - 8.5 g/dL [facility] ALBUMIN, SERUM 4.5 4.1 - 5.1 g/dL [facility] GLOBULIN, TOTAL 2.5 1.5 - 4.5 g/dL [facility] A/G RATIO 1.8 1.2 - 2.2 [facility] BILIRUBIN, TOTAL 0.4 0.0 - 1.2 mg/dL [facility] ALKALINE PHOSPHATASE, SERUM 88 44 - 121 IU/L [facility] AST (SGOT) 28 0 - 40 IU/L [facility] ALT (SGPT) 35 0 - 44 IU/L [facility] Blood Blood / Unknown 11/16/2023 1 0:28 AM EDT 11/16/2023 us Jb Wolfe APRN, CNP LAB - BLOOD DR NUSRAT Final Result [facility] [address] [place] [address] * HEPATITIS C ANTIBODY WITH REFLEX TO HCV, RNA, QUANTITATIVE, REAL-TIME PCR (REFL) (08/17/2023 2:41 PM EST) HCV AB Non Reactive Non Reactive [facility] Blood Blood / Unknown 08/17/2023 2 :41 PM EST 08/17/2023 us Timi Catherine APRN, CNP LAB - BLOOD DRAW Final Resu lt Performing Organization Address City/[facility]/ZIP Co de Phone Number [facility] [address] [place] [address] from Last 3 Months or Most Recently Relevant to Health Maintenance Insurance [employer] Care Teams Shop Clerk Relationship Specialty Start Date End Date Ann-Marie Lorenzo DO PCP - General Internal Medicine 05/16/21 Briana Berman [address] [place] [address] 04/07/22
--- OUTSIDE RECORDS SUMMARY | 2024-10-04 16:00 | XMS_ITS | Patient Health Record ---
Author Organization [facility] Address [address] [place] [address] Care Team Providers Care Chummer Name Role Phone SHAYNE MENDEZ Primary Care Provider Shayne Mendez MD Unavailable [phone] Allergies Allergen (clinical drug ingredient) Drug/Non Drug Allergy documented on EMR Reaction Allergy Type Onset Date Status Sulfa Unknown Drug Allergy Active Latex Latex (uncoded) welts Allergy Acti ve Reason For Referral No Information Medications Medication SIG (Take, Route, Frequency, Duration) Notes Start Date End Date Status Mometasone Furoate 0.1 % 1 application Externally Once a day to affected area until clear 02/29/2020 Not-Taking Emtricitabine-Tenofo vir DF 200-300 MG 1 tablet Orally Once a day 09/08/2018 Active Cetirizine HCl 10 MG TAKE 1 TABLET BY MOUTH EVERY DAY Active Fluocinonide 0.05 % 1 application Externally Twice a day 04/06/2023 Active Tadalafil 10 MG 1 tablet Orally Once a day as needed for 30 days Active Anastrozole 1 MG 1/2 tablet Orally Once a day for 30 day(s) Q8D 01/14/2022 Not-Taking Azithromycin 250 MG 2 tablet on the s t day, then 1 tablet daily for 4 days Orally Once a day for 5 days 08/10/2024 Active Sertraline HCl 50 MG 1 tablet Orally Onc e a day 04/06/2023 Active Acyclovir 400 MG 1 tablet Orally twic e daily as needed for 30 days 08/10/2015 Active Testosterone Cypionate 100 MG/ML 1 ml Intramuscular 140 mg q week 01/14/2022 A ctive Immunizations Vaccine Route Administration Date Status Comme nts COVID-19 (Moderna) Unknown 09/10/2020 Administered COVID-19 (Moderna) Unknown 01/17/2021 Administered COVID-19 (Moderna) Unknown 07/19/2021 Administered COVID-19 (Moderna) Booster IM Intramuscular 01/14/2022 Adm inistered TdaP (PRIVATE) Adult Unknown 05/15/2021 Administered Social History Tobacco Use: Social History Observation Description Date Details (start date - stop date) Never Smoker NA - NA Tobacco Use: Question Answer Notes Status: Never smoker Problems Problem Type SNOMED Code ICD Code Onset Dates Problem Status W/U Status Risk Notes Problem Erectile dysfunction (532085096) Erectile dysfunction (F52.21) Active confirmed Not discussed today Problem 77109807 Herpes simplex (B00.9) Active confirmed Problem Adjustment disorder with anxious mood (56892386) Adjustment disorder with anxious mood (F43.22) Active confirmed well compensated lately Problem 19674107 Hypogonadism in male (E29.1) Active confirmed Stable on replacement Problem Displacement of lumbar intervertebral disc without myelopathy (32094567) Other intervertebral disc displacement, lumbar region (M51.26) Active confirmed stable with regular exercises Problem 83516177 Eczema, unspecified type (L30.9) Active confirmed Problem 971980842 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) Active confirmed Well compensated lately Problem 582361682 Seasonal allergic rhinitis, unspecified trigger (J30.2) Active confirmed Seasonal symptoms, active lately Encounters Encounter Location Date Provider Diagnosis -EP Primary Care [address] [place] [phone] 11/24/2023 SHAYNE MENDEZ Herpes simplex B00.9 -EP Primary Care [address] [place] [phone] 05/06/2024 SHAYNE MENDEZ -EP Primary Care [address] [place] [address] 08/10/2024 SHAYNE MENDEZ [facility] Primary [facility] [address] [place] [address] 04/07/2024 SHAYNE MENDEZ Assessments Encounter Date Diagnosis (ICD Code) Assessment Notes Treatment Notes Treatment Clinical Notes Section Notes 11/24/2023 Herpes simplex (ICD-10 - B00.9) Plan Of Treatment Pending Test Test Name Order Date BMP (BASIC METABOL PANEL) 09/08/2018 LYTES 09/08/2018 UA (Send Out) 09/08/2018 X ray: Foot, left 03/30/2019 X ray: Foot, right 03/30/2019 Next Appt Details Provider Name:SHAYNE TAYLOR OE, 03/20/2025 03:30:00 PM, [address] [place] [address], [phone], Insurance Providers Payer Name Payer Address Payer Phone Subscriber Number Group Number Insured Name Patient Relationship to Insured Coverage Start Date Coverage End Date [facility] [address] [place] [address] [phone] [id number] Clovis Webster Self - patient is the insured Medical (General) History Medical History History ICD Code cold urticaria herpes simplex ADHD? bipolar? Surgical History Surgery Date(Month/Year) skull fracture skin graft after trauma Nephrolithiasis 11/2022 right medial meniscus inguinal hernia (as infant) laparatomy wisdom teeth
--- OUTSIDE RECORDS SUMMARY | 2024-10-04 16:00 | XMS_ITS ---
Author Organization [facility] Address [address] [place] [address] Care Team Providers Care Group Manager Name Role Phone SHAYNE MENDEZ Primary Care Provider Shayne Mendez MD [phone] Allergies Allergen (clinical drug ingredient) Drug/Non Drug Allergy documented on EMR Reaction Allergy Type Onset Date Status Sulfa Unknown Drug Allergy Active Latex Latex (uncoded) welts Allergy Acti ve REASON FOR VISIT Annual Social History Tobacco Use: Social History Observation Description Date Details (start date - stop date) Never Smoker NA - NA Tobacco Use: Question Answer Notes Status: Never smoker Encounters Encounter Location Date Provider Diagnosis PC-EP Primary Care [address] [place] [phone] 09/13/2024 SHAYNE MENDEZ Adult general medica l exam Z00.00 and Encounter for screening examination for other mental health and behavioral disorders Z13.39 Assessments Encounter Date Diagnosis (ICD Code) Assessment Notes Treatment Notes Treatment Clinical Notes Section Notes 09/13/2024 Adult general medical exam (ICD-10 - Z00.00) 09/13/2024 Encounter for screening examination for other mental health and behavioral disorders (ICD-10 - Z13.39) Plan Of Treatment Next Appt Details Provider Name:SHAYNE STEINER, 03/20/2025 03:30:00 PM, [address] [place] [address], [phone], Progress Notes * Lorraine MORRISOB:1975 (49 yo M)Acc No.[id number]:09/13/2024 Progress Notes Patient:?Clovis MORRIS Provider:?Shayne Mendez MD :1975???Age:49 Y???Sex:Male Denis e:09/13/2024 Address:[address] [place] [phone] Subjective: * Chief Complaints: * ???1. Annual. * Medical History:?Cold urtica garth, Herpes simplex, ADHD?, Bipolar?. 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 ?Lives with: partner. ?Children: none. ?Exercise: Regular physical activity. * Allergies:?Sulfa, Latex: wel ts. Objective: * Vitals:? Assessment: * Assessment: 1.?Adult general medical exa m - Z00.00 (Primary)???2.?Encounter for screening examination for other mental health and behavioral disorders - Z13.39??? Plan: * Treatment: * * The named appointment provid er may or may not be the originator of this progress note, and it is not deemed complete until electronically signed by the appointment provider. Sign off status: Pending * Provider:?Shayne Mendez MD Date:? Generated for Shubham leija/Luke/eTransmitting on:?10/04/2024 03:59 PM EST
--- OUTSIDE RECORDS SUMMARY | 2024-10-04 16:01 | XMS_ITS ---
Author Organization [facility] Address [address] [place] [address] Care Team Providers Care Corn Breeder Name Role Phone SHAYNE MENDEZ Primary Care Provider [phone] Shayne Mendez MD [facility] [phone] REASON FOR VISIT *Rx needed Medications Medication SIG (Take, Route, Fr equency, Duration) Notes Start Date End Date Status Azithromycin 250 MG 2 tablet on the firs t day, then 1 tablet daily for 4 days Orally Once a day for 5 days 08/10/2024 Active Encounters Encounter Location Date Provider Diagnosis [facility] [address] [place] [id number] 08/10/2024 SHAYNE MENDEZ Plan Of Treatment Medication Medication Name Sig Start Date Stop Date Notes Azithromycin 250 MG 2 tablet on the firs t day, then 1 tablet daily for 4 days Orally Once a day for 5 days 08/10/2024 Next Appt Details Provider Name:SHAYNE STEINER, 03/20/2025 03:30:00 PM, [address] [place] [address], [id number], Progress Notes * Lorraine MORRISOB:1975 (49 yo M)Acc No.[id number]:08/10/2024 Patient:?Josee MORRIShan :1975???Age:49 Y???Sex:Male Address:[address], [place] [address] * Refills? Start Azithromycin Tablet, 250 MG, Orally, 6, 2 tablet on the first day, then 1 tablet daily for 4 days, Once a day, 5 days, Refills=0 * true * Date:? Generated for Shubham leija/Luke/Speedy on:?10/04/2024 04:00 PM EST
== END 2024-10-04 16:09 | disposition home or self-care (01) ==
PROVIDERS: PCP Family Medicine; Visit Provider Family Medicine
DX: J31.0 Chronic rhinitis (principal); Z79.899 Other long term (current) drug therapy; F52.4 Premature ejaculation; Z00.00 Encounter for general adult medical examination without abnormal findings

== ENCOUNTER → 2024-10-04 14:58 | Outpatient (BNVA) | payer OTHER, SELFPAY | PROVIDERS: PCP Family Medicine; Visit Provider Family Medicine | DX: J31.0 Chronic rhinitis (principal); F52.4 Premature ejaculation; Z79.899 Other long term (current) drug therapy | CPT/HCPCS: 96127 ==